=== PATIENT | female | born 1990 | race Caucasian/White ===

== ENCOUNTER 2022-06-27 16:49 | Emergency (ER) | payer MEDICARE, MEDICAID, SELFPAY ==
[2022-06-27 16:59] VITALS: BP 138/99; PULSE 93; RESP 16; TEMP 36.3; O2SAT 100; BMI 30.2
--- NOTE | 2022-06-27 16:59 | ED_ITS ---
HPI - General Adult General Chief complaint: Recheck/Abnormal Lab/Rx <PERRY Ibarra - Last Filed: 06/27/22 17:00> Stated complaint: Headache/High blood pressure <PERRY Ibarra - Last Filed: 06/27/22 17:00> Time Seen by Provider: 06/27/22 18:25 <PERRY Ibarra - Last Filed: 06/27/22 17:00> Source: patient <Radha Dietrich MD - Last Filed: 06/27/22 20:08> Mode of arrival: ambulatory <Radha Dietrich MD - Last Filed: 06/27/22 20:08> Limitations: no limitations <Radha Dietrich MD - Last Filed: 06/27/22 20:08> History of Present Illness HPI narrative: Patient comes to the emergency room complaining of headache and high blood pressure. Patient states that for last 2 days, she has noted that she has headaches which it is unusual for her. Patient usually has headaches when her blood pressure is high. Patient check her blood pressure and it was above 140 systolic. Patient states that she was recently taken off 5 mg of amlodipine. B lood pressure was well controlled with it. It was decided to take her off because patient lost significant weight after her gastric sleeve surgery. However, patient has noted that her blood pressure is still not well controlled despite weight loss. <Radha Dietrich MD - Last Filed: 06/27/22 20:08> Related Data Allergies/adverse reactions: Allergies Allergy/AdvReac Type Severity Reaction Status Date / Time No Known Allergies Allergy Verified 06/27/22 16:59 <PERRY Ibarra - Last Filed: 06/27/22 17:00> Review of Systems Review of Systems: Constitutional : No Weight loss, No Fever, No Chills, No Night Sweats, No Fatigue, No Malaise ENT/Mouth : No Hearing loss, No Ear Pain, No Nasal Congestion, No Sinus Pain, No Hoarseness, No sore throat, No Rhinorrhea, No Swallowing Difficulty Eyes: No Eye Pain, No Swelling, No Redness, No Foreign Body, No Discharge, No Vision Changes Cardiovascular : No Chest Pain, No SOB, No Dyspnea on Exertion, No Orthopnea, No Edema, No Palpitations, complaining of high blood pressure in the 140 systolic Respiratory : No Cough, No Sputum, No Wheezing, No Smoke Exposure, No Dyspnea Gastrointestinal : No Nausea, No Vomiting, No Diarrhea, No Constipation, No abdominal Pain, No Hematochezia, No Melena Genitourinary : no irregular bleeding, No Dysuria, No Urinary Frequency, No Hematuria, No Urinary Incontinence, No Urgency, No Flank Pain, No Urinary Flow Changes, No Hesitancy Musculoskeletal : No joint pain, No Myalgias, No Joint Swelling Skin : No Skin Lesions, No rash Neuro : No Weakness, No Numbness, No Paresthesias, No Loss of Consciousness, No Dizziness, being a Headache Psych : No Anxiety/Panic, No Depression, No SI/HI/AH/VH, No Social Issues, Heme/Lymph: No Bruising, No Bleeding,No Lymphadenopathy Endocrine : No Polyuria, No Polydipsia, No Temperature Intolerance <Radha Dietrich MD - Last Filed: 06/27/22 20:08> ON LICENSE OF [facility] Past Medical History Medical History: Medical History (Updated 06/27/22 @ 18:40 by Radha Dietrich MD) Hypertension <PERRY Ibarra - Last Filed: 06/27/22 17:00> Social History Social History: Social History Advance Directives: No Advance Directives Information Provided: Yes <PERRY Ibarra - Last Filed: 06/27/22 17:00> Physical Exam ED Vital Signs: Vital Signs - 24 hr 06/27/22 16:59 Temperature 97.3 F Pulse Rate 93 Respiratory Rate 16 Blood Pressure 138/99 H Pulse Oximetry 100 Oxygen Delivery Method Room Air BMI result Body Mass Index 30.2 <PERRY Ibarra - Last Filed: 06/27/22 17:00> Vital Signs - 24 hr 06/27/22 16:59 Temperature 97.3 F Pulse Rate 93 Respiratory Rate 16 Blood Pressure 138/99 H Pulse Oximetry 100 Oxygen Delivery Method Room Air BMI result Body Mass Index 30.2 <Radha Dietrich MD - Last Filed: 06/27/22 20:08> Const Other: Appearance: Alert. Oriented X3. No acute distress. Eyes: Pupils equal, round and reactive to light. ENT: Pharynx normal. Neck: Normal inspection. Neck supple. No lymph nodes noted. No crepitus CVS: Normal heart rate and rhythm. Pulses normal. Normal S1 and S2 Respiratory: No respiratory distress. Breath sounds normal. No Wheezing. No rales Abdomen: Soft and nontender. No rigidity. No distention. Skin: Skin warm and dry. Normal skin color. Normal skin turgor. Extremities: No lower extremity edema. No Lacerations. No Rash Neuro: Oriented X 3. No motor deficit. No sensory deficit. Moving all extremities. No slurred speech. CN 2 through 12 grossly intact Psych: calm, cooperative, normal affect <Radha Dietrich MD - Last Filed: 06/27/22 20:08> Course Course Course Narrative: RME performed by Allyssa Reed PA-C. Patient is a 21 year old female presenting to the emergency department with a headache and concern of high blood pressure. Patient states that she has been having a headache for the last 2 days. Patient states that she previously had high blood pressure, was taking medication, but then the doctor stopped her medication. Labs ordered. Patient placed back in the waiting room pending results and room availability. <PERRY Ibarra - Last Filed: 06/27/22 17:00> Medications Administered Discontinued Medications Generic Name Dose Route Start Last Admin Trade Name Akhil PRN Reason Stop Dose Admin Amlodipine Besylate 5 mg 06/27/22 18:34 06/27/22 18:48 Amlodipine Besylate 5 Mg Tablet PO 06/27/22 18:35 5 mg ONCE ONE Administration Protocol Diphenhydramine HCl 25 mg 06/27/22 18:35 06/27/22 18:48 Diphenhydramine Hcl 50 Mg/Ml Vial IVPUSH 06/27/22 18:36 25 mg ONCE ONE Administration Sodium Chloride 1,000 mls @ 999 mls/hr 06/27/22 18:35 06/27/22 18:48 Ns IVCONT 06/27/22 19:35 999 mls/hr .Q1H1M ONE Administration Ketorolac Tromethamine 30 mg 06/27/22 18:35 06/27/22 18:49 Ketorolac Tromethamine 30 Mg/Ml Vial IVPUSH 06/27/22 18:36 30 mg ONCE ONE Administration Metoclopramide HCl 10 mg 06/27/22 18:35 06/27/22 18:49 Metoclopramide Hcl 10 Mg/2 Ml Vial IVPUSH 06/27/22 18:36 10 mg ONCE ONE Administration <PERRY Ibarra - Last Filed: 06/27/22 17:00> Medications Administered Discontinued Medications Generic Name Dose Route Start Last Admin Trade Name Akhil PRN Reason Stop Dose Admin Amlodipine Besylate 5 mg 06/27/22 18:34 06/27/22 18:48 Amlodipine Besylate 5 Mg Tablet PO 06/27/22 18:35 5 mg ONCE ONE Administration Protocol Diphenhydramine HCl 25 mg 06/27/22 18:35 06/27/22 18:48 Diphenhydramine Hcl 50 Mg/Ml Vial IVPUSH 06/27/22 18:36 25 mg ONCE ONE Administration Sodium Chloride 1,000 mls @ 999 mls/hr 06/27/22 18:35 06/27/22 18:48 Ns IVCONT 06/27/22 19:35 999 mls/hr .Q1H1M ONE Administration Ketorolac Tromethamine 30 mg 06/27/22 18:35 06/27/22 18:49 Ketorolac Tromethamine 30 Mg/Ml Vial IVPUSH 06/27/22 18:36 30 mg ONCE ONE Administration Metoclopramide HCl 10 mg 06/27/22 18:35 06/27/22 18:49 Metoclopramide Hcl 10 Mg/2 Ml Vial IVPUSH 06/27/22 18:36 10 mg ONCE ONE Administration <Radha Dietrich MD - Last Filed: 06/27/22 20:08> Medical Decision Making Medical Decision Making [facility] Narrative: -patient's blood pressure in the 140s. No neurological deficits, normal physical exam. Intracranial bleed no suspected. -patient being given IV fluids, Reglan, Benadryl and Toradol -for blood pressure patient given her usual dose of amlodipine, 5 mg -patient's blood pressure after the amlodipine 177/77. Patient's headache reso lved, patient before discharge <Radha Dietrich MD - Last Filed: 06/27/22 20:08> Differential Diagnosis Differential Diagnoses: The differential diagnosis associated with the presentation includes (Tension headache, migraine headache, high blood pressure) <Radha Dietrich MD - Last Filed: 06/27/22 20:08> Lab Data [facility] Lab Attestation statement: I reviewed the patient's lab results. <Radha Dietrich MD - Last Filed: 06/27/22 20:08> Result Diagrams: 06/27/22 17:51 06/27/22 17:52 <PERRY Ibarra - Last Filed: 06/27/22 17:00> Labs: Lab Results 06/27/22 06/27/22 06/27/22 Range/Units 17:51 17:52 18:50 WBC 9.3 (4.8-10.8) X10*3/uL RBC 4.60 (4.20-5.50) X10*6/uL Hgb 13.7 (12.0-16.0) g/dl Hct 40.9 (37.0-47.0) % MCV 88.9 (80.0-98.0) fL MCH 29.8 (27.0-33.0) pg MCHC 33.5 (31.0-35.0) g/dl RDW 12.0 (11.0-16.0) % Plt Count 324 (160-400) X10*3/uL MPV 8.4 L (9.4-12.3) fL Immature Gran % (Auto) 0.2 (0.0-0.4) % Neut % (Auto) 67.4 (45-73) % Lymph % (Auto) 20.6 (20-40) % [place] % (Auto) 9.6 (2-11) % Eos % (Auto) 1.4 (0-4) % Baso % (Auto) 0.8 (0-2) % Lymph # (Auto) 1.9 (1.2-4.9) X10*3/uL [place] # (Auto) 0.9 (0.1-1.2) X10*3/uL Eos # (Auto) 0.1 (0.0-0.4) X10*3/uL Baso # (Auto) 0.1 (0.0-0.2) X10*3/uL Abs Immat Gran (auto) 0.02 (0.00-0.03) X10*3/uL Absolute Neuts (auto) 6.3 (2.0-8.3) x10*3/uL Absolute Nucleated RBC 0.000 (0.0-0.012) X10*3/uL Nucleated RBC % (auto) 0.0 (0.0-0.2) /100WBC Sodium 139 (135-145) mmol/L Potassium 3.9 (3.3-5.1) mmol/L Chloride 103 (96-108) mmol/L Carbon Dioxide 28 (22-29) mmol/L Anion Gap 12 (12-20) BUN 7 L (9-16) mg/dL Creatinine 0.72 (0.5-1.4) mg/dL Estim Creat Clear Calc 85.2 Estimated GFR > 60 Random Glucose 88 (60-115) mg/dL Calcium 9.3 (8.4-10.2) mg/dL Magnesium 2.1 (1.6-2.6) mg/dL Total Bilirubin 0.5 (0.0-1.0) mg/dL AST 18 (5-31) U/L ALT 17 (0-31) U/L Alkaline Phosphatase 64 (39-117) U/L Troponin I High Sens < 3.5 (<3.5-17.0) ng/L Total Protein 6.7 (6.5-8.0) g/dL Albumin 4.0 (3.5-5.0) g/dL <PERRY Ibarra - Last Filed: 06/27/22 17:00> Lab Results 06/27/22 06/27/22 06/27/22 Range/Units 17:51 17:52 18:50 WBC 9.3 (4.8-10.8) X10*3/uL RBC 4.60 (4.20-5.50) X10*6/uL Hgb 13.7 (12.0-16.0) g/dl Hct 40.9 (37.0-47.0) % MCV 88.9 (80.0-98.0) fL MCH 29.8 (27.0-33.0) pg MCHC 33.5 (31.0-35.0) g/dl RDW 12.0 (11.0-16.0) % Plt Count 324 (160-400) X10*3/uL MPV 8.4 L (9.4-12.3) fL Immature Gran % (Auto) 0.2 (0.0-0.4) % Neut % (Auto) 67.4 (45-73) % Lymph % (Auto) 20.6 (20-40) % [place] % (Auto) 9.6 (2-11) % Eos % (Auto) 1.4 (0-4) % Baso % (Auto) 0.8 (0-2) % Lymph # (Auto) 1.9 (1.2-4.9) X10*3/uL [place] # (Auto) 0.9 (0.1-1.2) X10*3/uL Eos # (Auto) 0.1 (0.0-0.4) X10*3/uL Baso # (Auto) 0.1 (0.0-0.2) X10*3/uL Abs Immat Gran (auto) 0.02 (0.00-0.03) X10*3/uL Absolute Neuts (auto) 6.3 (2.0-8.3) x10*3/uL Absolute Nucleated RBC 0.000 (0.0-0.012) X10*3/uL Nucleated RBC % (auto) 0.0 (0.0-0.2) /100WBC Sodium 139 (135-145) mmol/L Potassium 3.9 (3.3-5.1) mmol/L Chloride 103 (96-108) mmol/L Carbon Dioxide 28 (22-29) mmol/L Anion Gap 12 (12-20) BUN 7 L (9-16) mg/dL Creatinine 0.72 (0.5-1.4) mg/dL Estim Creat Clear Calc 85.2 Estimated GFR > 60 Random Glucose 88 (60-115) mg/dL Calcium 9.3 (8.4-10.2) mg/dL Magnesium 2.1 (1.6-2.6) mg/dL Total Bilirubin 0.5 (0.0-1.0) mg/dL AST 18 (5-31) U/L ALT 17 (0-31) U/L Alkaline Phosphatase 64 (39-117) U/L Troponin I High Sens < 3.5 (<3.5-17.0) ng/L Total Protein 6.7 (6.5-8.0) g/dL Albumin 4.0 (3.5-5.0) g/dL <Radha Dietrich MD - Last Filed: 06/27/22 20:08> Discharge Plan Discharge Clinical Impression: Hypertension, Headache <PERRY Ibarra - Last Filed: 06/27/22 17:00> Patient Disposition: Home, Self-Care <PERRY Ibarra - Last Filed: 06/27/22 17:00> Instructions: Hypertension (ED), Acute Headache (ED) <PERRY Ibarra - Last Filed: 06/27/22 17:00> Additional Instructions: Continue taking 5 mg of amlodipine daily. Please follow-up with your primary care physician tomorrow. If you have any worsening or new symptoms, please return to the emergency room or call 911 <PERRY Ibarra - Last Filed: 06/27/22 17:00>
--- NOTE | 2022-06-27 17:01 | ECG_ITS ---
Test Reason : HEADACHE/DIZZINESS Blood Pressure : / mmHG Vent. Rate : 078 BPM Atrial Rate : 078 BPM P-R Int : 136 ms QRS Dur : 082 ms QT Int : 394 ms P-R-T Axes : 045 064 024 degrees QTc Int : 449 ms Normal sinus rhythm Normal ECG No previous ECGs available Referred By: Allyssa Reed Electronically Signed By:Carlos Yeh
[2022-06-27 17:59] LABS: MANUAL DIFF FLAG NO
[2022-06-27 18:19] LABS: Basophils Absolute Auto 0.1 X10*3/uL (0.0-0.2); Basophils Percent Auto 0.8 % (0-2); Eosinophils Absolute Auto 0.1 X10*3/uL (0.0-0.4); Eosinophils Percent Auto 1.4 % (0-4); Hematocrit 40.9 % (37.0-47.0); Hemoglobin 13.7 g/dl (12.0-16.0); Imm Gran Abs Auto 0.02 X10*3/uL (0.00-0.03); Imm Gran Pct Auto 0.2 % (0.0-0.4); Lymphocytes Absolute Auto 1.9 X10*3/uL (1.2-4.9); Lymphocytes Percent Auto 20.6 % (20-40); Mean Corpuscular HGB Conc 33.5 g/dl (31.0-35.0); Mean Corpuscular Hemoglobin 29.8 pg (27.0-33.0); Mean Corpuscular Volume 88.9 fL (80.0-98.0); Mean Platelet Volume 8.4 fL (9.4-12.3); Monocytes Absolute Auto 0.9 X10*3/uL (0.1-1.2); Monocytes Percent Auto 9.6 % (2-11); Neutrophils Absolute Auto 6.3 x10*3/uL (2.0-8.3); Neutrophils Percent Auto 67.4 % (45-73); Platelet Count 324 X10*3/uL (160-400); White Blood Count 9.3 X10*3/uL (4.8-10.8)
[2022-06-27 18:20] LABS: Alanine Aminotransferase 17 U/L (0-31); Alkaline Phosphatase 64 U/L (39-117); Anion Gap 12 (12-20); Aspartate Amino Transferase 18 U/L (5-31); Bilirubin Total 0.5 mg/dL (0.0-1.0); Blood Urea Nitrogen 7 mg/dL (9-16); Calcium 9.3 mg/dL (8.4-10.2); Carbon Dioxide 28 mmol/L (22-29); Chloride 103 mmol/L (96-108); Creatinine Clr Calc Pharmacy 85.2; Estimated Glomerular Filt Rate > 60; Glucose Random 88 mg/dL (60-115); Magnesium 2.1 mg/dL (1.6-2.6); Potassium 3.9 mmol/L (3.3-5.1); Sodium 139 mmol/L (135-145); Total Protein 6.7 g/dL (6.5-8.0)
[2022-06-27] MEDS: amLODIPine Besylate 5 MG TABLET PO (18:48)
[2022-06-27] MEDS: diphenhydrAMINE HCL 50 MG/ML VIAL 25 MG IVPUSH (18:48)
[2022-06-27] MEDS: 0.9 % Sodium Chloride 1,000 ML 999 ML IVCONT (18:48)
[2022-06-27] MEDS: Metoclopramide HCl 10 MG/2 ML VIAL IVPUSH (18:49)
[2022-06-27] MEDS: Ketorolac Tromethamine 30 MG/ML VIAL IVPUSH (18:49)
[2022-06-27 19:19] LABS: Troponin-I High Sensitivity < 3.5 ng/L (<3.5-17.0)
[2022-06-27 20:00] VITALS: BP 177/77; PULSE 82; RESP 14
--- NOTE | 2022-06-27 20:33 | PC.NURSE ---
Pt aox3 resting at the bedside. IV line removed with no complications. Pt tolerated well. Discharge instructions reviewed with pt. Pt verbalizes understanding.
== END 2022-06-27 20:34 | disposition home or self-care (01) ==
PROVIDERS: Physician Assistant Medical; Emergency Provider Emergency Medicine
DX: R51.9 Headache, unspecified (principal); R42 Dizziness and giddiness; I10 Essential (primary) hypertension; Z79.899 Other long term (current) drug therapy
CPT/HCPCS: 36415; 80053; 83735; 84484; 85025; 93005; 96361; 96372; 96374; 96375; 99284; J1200; J1885; J2765

== ENCOUNTER 2024-04-07 20:01 | Emergency (ER) | payer MEDICAID, SELFPAY ==
--- NOTE | ~2024-04-07 | CT_ITS ---
EXAMINATION: CT HEAD WITHOUT CONTRAST CLINICAL INFORMATION: Headache. COMPARISON: None available. TECHNIQUE: Contiguous axial imaging was performed from the skull base to vertex without intravenous administration of contrast. This CT examination was performed using dose optimization techniques as appropriate, variously including the following: *Automated exposure control *Adjustment of mA and/or kV according to patient size (this includes techniques or standardized protocols for targeted exams where dose is matched to indication/reason for exam; i.e. extremities or head) *Use of iterative reconstruction technique DLP: 570 mGy-cm FINDINGS: The lateral, third and fourth ventricles are normally outlined. The cortical sulci and basal cisterns are normally outlined as well. There is no acute territorial defect, hemorrhage or midline shift. The extra-axial spaces are unremarkable. Calvarium/scalp: Intact. Maxillofacial sinuses and mastoids: Clear as visualized. CT/CT head/brain wo IV con IMPRESSION: No acute intracranial pathology. Electronically signed by: Devonte Ibanez MD 04/08/2024 03:31 AM [facility]
--- NOTE | 2024-04-07 20:04 | ECG_ITS ---
Test Reason : CHEST PAIN Blood Pressure : / mmHG Vent. Rate : 089 BPM Atrial Rate : 089 BPM P-R Int : 122 ms QRS Dur : 078 ms QT Int : 338 ms P-R-T Axes : 051 073 027 degrees QTc Int : 411 ms Sinus rhythm with marked sinus arrhythmia Otherwise normal ECG When compared with ECG of 27-JUN-2022 17:43, No significant change was found Referred By: Jean Sanchez Electronically Signed By:ROD PUTNAM MD
[2024-04-07 20:19] VITALS: BP 150/100; PULSE 99; RESP 18; TEMP 36.5; O2SAT 99; BMI 23.7
[2024-04-07 20:22] LABS: MANUAL DIFF FLAG NO
--- NOTE | 2024-04-07 20:24 | ED_ITS ---
HPI - General Adult General Chief complaint: Chest Pain Stated complaint: chest pain/high bp Time Seen by Provider: 04/08/24 01:21 Source: patient Mode of arrival: ambulatory Limitations: no limitations History of Present Illness ED Provider: DR. Chavez HPI narrative: 33-year-old female presented today evaluation of multiple complaints. Headache for the past week described as by bilateral temporal headache, no photophobia, no blurry vision, no double vision, patient checked her blood pressure found it to be a high above 200 as per patient. Patient also is complaining of chest pain that started after patient found that her blood pressure was high stated that she was anxious. Now still complaining of headache, no chest pain, no shortness of breath, no recent travel, no lower extremity swelling or tenderness, no history of PE/DVT. Related Data Allergies Allergy/AdvReac Type Severity Reaction Status Date / Time No Known Allergies Allergy Verified 04/07/24 20:19 Review of Systems 2 Review of Systems: All other systems are reviewed and are negative Constitutional: Reports as per HPI and Reports no additional constitutional complaints Eyes: Reports as per HPI and Reports no additional eye complaints Reports system reviewed and no additional complaints, except as documented Cardiovascular: Reports as per HPI and Reports no additional cardiovascular complaints Respiratory: Reports as per HPI and Reports no additional respiratory complaints Gastrointestinal: Reports as per HPI and Reports no additional gastrointestinal complaints Genitourinary: Reports no additional female genitourinary complaints Musculoskeletal: Reports no additional musculoskeletal complaints Skin/Breast: Reports system reviewed and no additional complaints, except as docu Psychiatric: Reports no additional psychiatric complaints Endocrine: Reports no additional endocrine complaints Hematologic/Lymphatic: Reports no additional hematologic/lymphatic complaints Allergic/Immunologic: Reports no additional allergic/immunologic complaints Reports system reviewed and no additional complaints, except as documented and Reports Abnormal speech present [facility] Past Medical History Medical History Hypertension Social History Social History Alcohol intake: never Smoked in Last 30 Days: No Use of substances other than those prescribed or required for medical reasons: No Advance Directives: No Do you have a plan to hurt others: No Plan Patient : No Physical Exam ED Vital Signs: Vital Signs - 24 hr 04/07/24 20:19 04/08/24 01:06 Temperature 97.7 F 98.2 F Pulse Rate 99 88 Respiratory Rate 18 18 Blood Pressure 150/100 H 141/103 H Pulse Oximetry 99 100 Oxygen Delivery Method Room Air Room Air BMI result Body Mass Index 23.7 Vital signs have been reviewed and appear to be correct. Blood pressure elevated. Heart rate normal. Respiratory rate normal. Temperature normal. Oxygen saturation normal. Appearance: Alert. Oriented X3. No acute distress. Head: Normal external exam. Normocephalic. Atraumatic. No Villalobos signs noted. No raccoon eyes noted Eyes: PERRLA. EOMI. Conjunctiva and sclera normal. Eyelids normal. ENT: TM's Normal. Pharynx normal. Uvula midline. Moist mucous membranes. No trismus noted. No drooling noted. No muffled voice noted. Neck: Normal inspection. Neck supple. FROM. No adenopathy. Thyroid Normal. No meningeal signs. No neck mass noted. CVS: Normal heart rate and rhythm. Heart sound normal. No murmurs noted. Pulses normal throughout. Respiratory: No respiratory distress. Painless inspiration. Breath sounds normal. No wheezes/rales/rhonchi noted. Chest nontender. No accessory muscle usage noted or decreased air movement noted. Abdomen: Soft and nontender. Bowel sounds normal in all 4 quadrants. No distention noted. No organomegaly noted. No visible injury noted. Back: No CVA tenderness. Full range of motion noted. Skin: Skin warm and dry. Normal skin color. Normal skin turgor. No rashes/lesions/lacerations noted. Extremities: No lower extremity edema. Extremities exhibit normal range of motion. Extremities nontender. Neuro: Mental status: Normal attention, orientation, memory, and affect. Cranial nerves: Pupils are equal, round and reactive to light, EOMI, visual murray are fall, face is symmetric, facial sensations are normal. Motor examination normal muscle tone, strength to 4 extremities. DTR are +2, planter's are flexor. Sensory exam; normal coordination, no ataxia, gait stable. Cerebellar exam: [id number] and [id number] is normal. Extrapyramidal system: No tremors, no rigidity with normal facial expressions. Pronator drift not present Course Course Course Narrative: RME, this is a rapid medical exam performed by Rene [place] please refer to primary provider for complete H&P- 33-year-old female presents for evaluation of chest pain and a headache for the last few days. She also complains of congestion. Plan for viral swabs, cardiac work up Reevaluation(s) Reevaluation #1: Chest pain and headache with elevated high blood pressure patient was instructed to keep monitoring her blood pressure and follow-up with her PCP. Normal neuro exam, normal CT of the head. Normal sed rate and C-reactive protein. ACS is not likely diagnosis with negative troponin x2. Time: 05:28 Medications Administered Discontinued Medications Generic Name Dose Route Start Last Admin Trade Name Freq PRN Reason Stop Dose Admin Ketorolac Tromethamine 30 mg 04/08/24 01:31 04/08/24 02:38 Ketorolac Tromethamine 30 Mg/Ml Vial IM 04/08/24 01:32 30 mg ONCE ONE Administration Medical Decision Making Differential Diagnosis Differential Diagnoses: The differential diagnosis associated with the presentation includes (Intracranial bleed, electrolyte derangement, severe anemia, sinusitis, temporal arteritis, upper respiratory viral infection.) Admission/Observation Consideration of admission/observation: Escalation of care including admission/observation considered Lab Data MDM Lab Attestation statement: I reviewed the patient's lab results. 04/07/24 20:11 04/07/24 20:11 Labs: Lab Results 04/07/24 04/07/24 04/08/24 Range/Units 20:11 23:15 02:48 WBC 10.2 (4.8-10.8) X10*3/uL RBC 4.60 (4.20-5.50) X10*6/uL Hgb 13.8 (12.0-16.0) g/dl Hct 40.0 (37.0-47.0) % MCV 87.0 (80.0-98.0) fL MCH 30.0 (27.0-33.0) pg MCHC 34.5 (31.0-35.0) g/dl RDW 12.0 (11.0-16.0) % Plt Count 326 (160-400) X10*3/uL MPV 8.0 L (9.4-12.3) fL Immature Gran % (Auto) 0.3 (0.0-0.4) % Neut % (Auto) 64.0 (45-73) % Lymph % (Auto) 23.3 (20-40) % [place] % (Auto) 10.7 (2-11) % Eos % (Auto) 1.1 (0-4) % Baso % (Auto) 0.6 (0-2) % Lymph # (Auto) 2.4 (1.2-4.9) X10*3/uL [place] # (Auto) 1.1 (0.1-1.2) X10*3/uL Eos # (Auto) 0.1 (0.0-0.4) X10*3/uL Baso # (Auto) 0.1 (0.0-0.2) X10*3/uL Abs Immat Gran (auto) 0.03 (0.00-0.03) X10*3/uL Absolute Neuts (auto) 6.5 (2.0-8.3) x10*3/uL Absolute Nucleated RBC 0.000 (0.0-0.012) X10*3/uL Nucleated RBC % (auto) 0.0 (0.0-0.2) /100WBC ESR 4 (0-20) MM/HR PT 11.7 (10.9-12.4) SEC INR 1.0 (0.9-1.1) Sodium 135 (135-145) mmol/L Potassium 3.4 (3.3-5.1) mmol/L Chloride 107 (96-108) mmol/L Carbon Dioxide 22 (22-29) mmol/L Anion Gap 9 L (12-20) BUN 11 (9-16) mg/dL Creatinine 0.62 (0.5-1.4) mg/dL Estim Creat Clear Calc 86.0 Estimated GFR > 60 Random Glucose 101 (60-115) mg/dL Calcium 8.9 (8.4-10.2) mg/dL Total Bilirubin 0.4 (0.0-1.0) mg/dL AST 21 (5-31) U/L ALT 16 (0-31) U/L Alkaline Phosphatase 49 (39-117) U/L Troponin I High Sens < 2.7 < 2.7 (<3.5-17.0) ng/L C-Reactive Protein 0.15 (< or = 0.50) mg/dL Total Protein 7.4 (6.5-8.0) g/dL Albumin 4.3 (3.5-5.0) g/dL Lipase 75 (8-78) U/L Influenza Type A (PCR) NEGATIVE (Negative) Influenza Type B (PCR) NEGATIVE (Negative) RSV RNA Qual (PCR) NEGATIVE (Negative) SARS-CoV-2 RNA (RT-PCR) NEGATIVE (Negative) Independent Interpretation I performed an independent interpretation of an: CT Scan (Head: No acute intracranial pathology.) Radiology Impression Discussion of test interpretation with radiology: I have reviewed the radiologist's reading. Discharge Plan Discharge Clinical Impression: Chest pain, Headache Patient Disposition: Home, Self-Care Instructions: Chest Pain (ED), Acute Headache (DC) Referrals: Ilana Desai MD [Primary Care Provider] - Interventions: ED Discharge Assessment Last Done: 04/08/24 06:53 Discharge Date/Time: 04/08/24 06:40 Print Language: Korean
[2024-04-07 20:37] LABS: Basophils Absolute Auto 0.1 X10*3/uL (0.0-0.2); Basophils Percent Auto 0.6 % (0-2); Eosinophils Absolute Auto 0.1 X10*3/uL (0.0-0.4); Eosinophils Percent Auto 1.1 % (0-4); Hemoglobin 13.8 g/dl (12.0-16.0); Imm Gran Abs Auto 0.03 X10*3/uL (0.00-0.03); Imm Gran Pct Auto 0.3 % (0.0-0.4); Lymphocytes Absolute Auto 2.4 X10*3/uL (1.2-4.9); Lymphocytes Percent Auto 23.3 % (20-40); Mean Corpuscular HGB Conc 34.5 g/dl (31.0-35.0); Monocytes Absolute Auto 1.1 X10*3/uL (0.1-1.2); Monocytes Percent Auto 10.7 % (2-11); Neutrophils Absolute Auto 6.5 x10*3/uL (2.0-8.3); Platelet Count 326 X10*3/uL (160-400); White Blood Count 10.2 X10*3/uL (4.8-10.8)
[2024-04-07 20:40] LABS: Alanine Aminotransferase 16 U/L (0-31); Albumin Level 4.3 g/dL (3.5-5.0); Alkaline Phosphatase 49 U/L (39-117); Anion Gap 9 (12-20); Aspartate Amino Transferase 21 U/L (5-31); Bilirubin Total 0.4 mg/dL (0.0-1.0); Blood Urea Nitrogen 11 mg/dL (9-16); Calcium 8.9 mg/dL (8.4-10.2); Carbon Dioxide 22 mmol/L (22-29); Chloride 107 mmol/L (96-108); Estimated Glomerular Filt Rate > 60; Glucose Random 101 mg/dL (60-115); Lipase 75 U/L (8-78); Potassium 3.4 mmol/L (3.3-5.1); Sodium 135 mmol/L (135-145); Total Protein 7.4 g/dL (6.5-8.0)
[2024-04-07 20:48] LABS: Troponin-I High Sensitivity < 2.7 ng/L (<3.5-17.0)
[2024-04-07 21:04] LABS: Influenza A PCR NEGATIVE (Negative); Influenza B PCR NEGATIVE (Negative); Resp Syncy Virus RNA Qual PCR NEGATIVE (Negative); SARS COV2 PCR INHOUSE NEGATIVE (Negative)
[2024-04-07 21:15] LABS: Prothrombin Time 11.7 SEC (10.9-12.4)
[2024-04-07 23:45] LABS: Troponin-I High Sensitivity < 2.7 ng/L (<3.5-17.0)
[2024-04-08 01:06] VITALS: BP 141/103; PULSE 88; RESP 18; TEMP 36.8; O2SAT 100
[2024-04-08 01:56] LABS: C Reactive Protein 0.15 mg/dL (< or = 0.50)
[2024-04-08] MEDS: Ketorolac Tromethamine 30 MG/ML VIAL IM (02:38)
[2024-04-08 03:25] LABS: Erythrocyte Sedimentation Rate 4 MM/HR (0-20)
--- NOTE | 2024-04-08 04:49 | PC.NURSE ---
Pt reporting pain has improved and headache is getting better.
[2024-04-08 04:51] VITALS: PULSE 87
[2024-04-08 06:53] VITALS: BP 141/103; PULSE 88; RESP 18; TEMP 36.8; O2SAT 100
== END 2024-04-08 06:40 | disposition home or self-care (01) ==
PROVIDERS: Physician Assistant; Emergency Provider Emergency Medicine; PCP Internal Medicine
DX: R07.9 Chest pain, unspecified (principal); R51.9 Headache, unspecified; I10 Essential (primary) hypertension; Z03.818 Encounter for observation for suspected exposure to other biological agents ruled out
CPT/HCPCS: 0241U; 36415; 70450; 80053; 83690; 84484; 85025; 85610; 85652; 86140; 93005; 96372; 99284; 99285; J1885

== ENCOUNTER → 2024-04-07 20:04 | Outpatient (BNV) | payer MEDICAID, SELFPAY | PROVIDERS: Emergency Provider Emergency Medicine; PCP Internal Medicine; Visit Provider Internal Medicine Cardiovascular Disease | DX: R07.9 Chest pain, unspecified (principal); I49.8 Other specified cardiac arrhythmias | CPT/HCPCS: 93010 ==